=== PATIENT | female | born 1960 | race Caucasian/White ===

== ENCOUNTER 2017-03-11 02:30 | Observation (INO) | payer BC, MEDICARE ==
[2017-03-11] MEDS ORDERED: SODIUM CHLORIDE 0.9% 500 ML INFUS.BAG IV ONE ×3 (02:38→05:48)
--- NOTE | 2017-03-11 02:42 | PDOC ---
History of Present Illness - General Chief Complaint: Pain Stated Complaint: NECK/CHEST PAIN Past History - Past Medical History Allergies/Adverse Reactions: Allergies Allergy/AdvReac Type Severity Reaction Status Date / Time No Known Allergies Allergy Unverified 03/11/17 02:34 Home Medications: Ambulatory Orders Aspirin [Ecotrin] 81 mg PO DAILY 03/11/17 Enalapril Maleate [Vasotec -] 10 mg PO DAILY 03/11/17 Pravastatin Sodium [Pravachol (Nf)] 40 mg PO HS 03/11/17 Propylthiouracil 50 mg PO DAILY 03/11/17 Review of Systems - Review of Systems Constitutional: Yes: Loss of Appetite, Malaise. No: Symptoms Reported, See HPI , Chills, Diaphoresis, Fever, Night Sweats, Weakness, Weight Stable, Unintentional Wgt. Loss, Unexplained wgt Loss, Other HEENTM: No: Symptoms Reported, See HPI, Eye Pain, Blurred Vision, Tearing, Recent change in vision, Double Vision, Cataracts, Ear Pain, Ocular Prothesis, Ear Discharge, Nose Pain, Nose Congestion, Tinnitus, Nose Bleeding, Hearing Loss , Throat Pain, Throat Swelling, Mouth Pain, Dental Problems, Difficulty Swallowing, Mouth Swelling, Other Respiratory: Yes: Shortness of Breath. No: Symptoms reported, See HPI, Cough, Orthopnea, SOB with Exertion, SOB at Rest, Stridor, Wheezing, Productive cough, Hemoptysis, Other Cardiac (ROS): Yes: Chest Pain. No: Symptoms Reported, See HPI, Edema, Irregular Heart Rate, Lightheadedness, Palpitations, Syncope, Chest Tightness, Other ABD/GI: No: Symptoms Reported, See HPI, Abdominal Distended, Abd. Pain w/ defecation, Blood Streaked Bowels, Constipated, Diarrhea, Difficulty Swallowing , Nausea, Poor Appetite, Poor Fluid Intake, Rectal Bleeding, Vomiting, Indigestion, Abdominal cramping, Tarry Stools, Other : No: Symptoms Reported, See HPI, Burning, Dysuria, Discharge, Frequency, Flank Pain, Hematuria, Incontinence, Pain, Urgency, Testicular Mass, Testicular Swelling, Lesions, Testicular Pain, Other Musculoskeletal: No: Symptoms Reported, See HPI, Back Pain, Gout, Joint Pain, Joint Swelling, Muscle Pain, Muscle Weakness, Neck Pain, Joint Stiffness, Other Integumentary: No: Symptoms Reported, See HPI, Bruising, Change in Color, Change in Hair/Nails, Dryness, Erythema, Flushing, Lesions, Lumps, Pallor, Pruritus, Rash, Sweating, Other Neurological: No: Symptoms reported, See HPI, Headache, Numbness, Paresthesia, Pre-Existing Deficit, Seizure, Tingling, Tremors, Weakness, Unsteady Gait, Ataxia, Dizziness, Other Psychiatric: Yes: Anxiety. No: Depression, Frequent Crying, Stressors, Sleep Pattern Change, Emotional Problems, Mood Swings, Change in Appetite, Other *Physical Exam - Physical Exam General Appearance: Yes: Nourished, Appropriately Dressed HEENT: positive: EOMI, LALO, Normal ENT Inspection, Normal Voice, Symmetrical, TMs Normal, Pharynx Normal Neck: positive: Trachea midline, Normal Thyroid, Supple Respiratory/Chest: positive: Lungs Clear, Normal Breath Sounds Cardiovascular: positive: Regular Rhythm, Regular Rate, S1, S2 Vascular Pulses: Femoral (R): 2+, Femoral (L): 2+, Carotid (R): 2+, Carotid (L) : 2+ Gastrointestinal/Abdominal: positive: Normal Bowel Sounds, Flat, Soft Musculoskeletal: positive: Normal Inspection Extremity: positive: Normal Capillary Refill, Normal Inspection, Normal Range of Motion Integumentary: positive: Normal Color, Dry, Warm Neurologic: positive: 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 Pleuritic CP. Pt has a 49 year history of smoking cigarettes; currently smoking half PPD. SHe didn't smoke all day. Pt has HTN and hyperthyroidism and high cholesterol. EKG and blood pressure and exam is normal. She is tachycardic and she feels pain every time she takes a deep breath. I will check a d-dimer. 03/11/17 03:49 Patient Name: CATINA TAPIA THIS IS A PRELIMINARY REPORT FROM [facility] DATE OF SERVICE: 2017-03-11 03:12:18 IMAGES: 3 EXAM: XR CHEST HISTORY: Pleuritic chest pain COMPARISON: None. FINDINGS: The cardiomediastinal silhouette is normal. The lungs are clear. The bones and soft tissues are normal IMPRESSION: Normal chest. THIS DOCUMENT HAS BEEN ELECTRONICALLY SIGNED 03/11/17 03:54 CXR is normal and CBC is normal. Pt has some pleuritic CP; she will be given 2 percocets. 03/11/17 05:13 Labs are normal; Creatinine is elevated to 1.2. However since that time she received 1 L NSS, passed urine and she will be given another Liter of NSS after the study. Patient has 94-97% O2sat on room air, clear CXR; initial EKG that is NSR (no evidence of PE or right heart strain) and after hydration she no longer is tachycardic. However we will check for PE before she goes to telemetry for cardiac monitoring. Pt admitted to the hospitalist team to tele observation. -- 03/11/17 06:25 Patient Name: CATINA TAPIA THIS IS A PRELIMINARY REPORT FROM [facility] DATE OF SERVICE: 2017-03-11 05:27:24 IMAGES: [id number] EXAM: CT CTA CHEST HISTORY: Rule out PE COMPARISON: None. FINDINGS: There is no PE or dissection. Heart size is normal. The trachea and bronchi are patent. There is no pleural or pericardial effusion. The lungs are clear other than mild dependent atelectasis. No fractures identified. The upper abdominal structures are normal. IMPRESSION: No evidence of acute pathology. 03/11/17 06:38 Pt is comfortable at this time. *DC/Admit/Observation/Transfer Diagnosis at time of Disposition: Chest pain - Discharge Dispostion Condition at time of disposition: Guarded Admit: Yes - Referrals Referrals: Linda Chavez [Primary Care Provider] - - Patient Instructions - Post Discharge Activity
[2017-03-11 03:34] LABS: BASOPHIL 0.2 % (0-2.0); EOSINOPHIL 0.3 % (0-4.5); MCH 31.1 pg (25.7-33.7); MEAN CELL VOLUME 91.4 fl (80-96); NEUTROPHILS 80.7 % (42.8-82.8); PLATELET COUNT 205 K/MM3 (134-434); RDW 13.9 % (11.6-15.6); WHITE BLOOD COUNT 8.4 K/mm3 (4.0-10.0)
[2017-03-11 04:00] LABS: INR 1.02 (0.82-1.09); PROTHROMBIN TIME (PATIENT) 11.5 SEC (9.98-11.88)
[2017-03-11 04:36] LABS: ALBUMIN 3.7 g/dl (3.4-5.0); ANION GAP 10 (8-16); BILIRUBIN,TOTAL 0.9 mg/dL (0.2-1.0); CALCIUM 8.2 mg/dL (8.5-10.1); CO2 26 mmol/L (21-32); CREATININE 1.2 mg/dL (0.55-1.02); GLUCOSE,RANDOM 141 mg/dL (74-106); SGPT/ALT 55 U/L (12-78); TOT PROT 7.2 g/dl (6.4-8.2)
[2017-03-11 04:39] LABS: CPK 72 IU/L (26-192); TROPONIN I < 0.02 ng/ml (0.00-0.05)
[2017-03-11 04:40] LABS: ALK PHOS 60 U/L (45-117); SGOT/AST 35 U/L (15-37)
[2017-03-11 04:48] LABS: THYROID STIMULATING HORMONE 1.21 uIU/ml (0.358-3.74)
[2017-03-11] MEDS ORDERED: ASPIRIN 81 MG CHEWABLE TABLETS PO ONE (05:12)
[2017-03-11] MEDS ORDERED: ASPIRIN 81 MG CHEWABLE TABLETS ONE (05:14)
[2017-03-11] MEDS ORDERED: SODIUM CHLORIDE 1,000 ML IV SCH (05:15)
[2017-03-11] MEDS: ASPIRIN 81 MG CHEWABLE TABLETS PO SCH ×2 (05:56→09:59)
--- NOTE | 2017-03-11 07:24 | CONSULT ---
Consult - text type - Consultation Consultation Note: CARDIOLOGY ASKED BY DR. Rosario TO SEE PT. 56 YO FEMALE 03/11/17 THROAT/CHEST PAIN. PT SEEN, EXAMINED. X RAYS, ECG REVIEWED. WORKING DX NON CARDIAC PLEURITIC PAIN/VIRAL ILLNESS. DIFF DX: DOUBT PERICARDITIS. HIGHLY DOUBT ACUTE MYOCARDIAL ISCHEMIA. ECG NORMAL. REC: ADMIT SERIAL TROPONIN LEVELS/ECG. SED RATE COMPLETE CESSATION OF SMOKING IN FUTURE OUT PATIENT NON INVASIVE CARDIAC EVALUATION TO INCLUDE: A.STRESS TEST/CT CORONARY ANGIOGRAM B.ECHOCARDIOGRAM THANKS. FULL NOTE DICTATED. WILL FOLLOW.
[2017-03-11 08:00] VITALS: PULSE 71; BMI 21.5
--- NOTE | 2017-03-11 08:49 | CONS ---
DATE OF CONSULTATION: 03/11/2017 REQUESTING PHYSICIAN: Dr. Conley PATIENT PROFILE: The patient is a 56-year-old woman admitted on March 11, 2017, because of chest/throat pain. The patient has no known heart disease. There is no history of a myocardial infarction, angina, or congestive heart failure. Routine electrocardiograms have reportedly been normal, as assessed by regular physical examinations on a yearly basis. She was in her usual state of health until the day of admission, when she experienced discomfort in the anterior upper chest with radiation towards the throat. It hurt to a great extent when she took a deep breath, causing her to feel short of breath and having difficulty taking deep breaths. There was no nausea or diaphoresis. She came to the emergency room with persistent discomfort. Her symptoms have gradually abated at this time. There is a prior history of hypertension requiring medical therapy and hyperlipidemia. She previously had been told of diabetes, which reportedly has improved in the last several years. She previously had been treated for diabetes, but not most recently. PRESENT MEDICATIONS: Aspirin 81 mg per day; pravastatin 40 mg per day; propylthiouracil 50 mg per day; Vasotec 10 mg per day. SOCIAL HISTORY: The patient smokes at the present time and previously had smoked as much as 1 to 2 packs of cigarettes per day. 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 She lives at home with her . FAMILY HISTORY: Her father of cancer. Her mother is alive. There is no family history of acute myocardial infarction or sudden . PRIOR MEDICAL HISTORY: She has not been hospitalized in the last 32 years. Her last hospitalization representation the of her child. She has thyroid dysfunction. SURGICAL HISTORY: None. REVIEW OF SYSTEMS: General: No fever or chills. Gastrointestinal: No melena, no vomiting. Pulmonary: No hemoptysis. Neurologic: No focal deficit. PHYSICAL EXAMINATION: General: The patient appears anxious, but in no acute distress. Vital Signs: Temperature is 99.1, heart rate is 90, blood pressure is 120/70, respiratory rate is 16 per minute, weight is 112 pounds, oxygen saturation is 95% on ambient air. Neck: There is no neck vein distention. There is no carotid bruit. Pulmonary: Lung srinivasan are clear. Cardiovascular: The heart sounds are normal. No pericardial rub is audible, no murmur is detected. The PMI is normal and not displaced. No diastolic sounds are appreciated. Abdomen: Soft with active bowel sounds. Extremities: There is no peripheral edema. The dorsalis pedis pulses are +2 bilaterally. DATABASE: The electrocardiogram demonstrates sinus rhythm; normal tracing. A chest x-ray showed no infiltrate, effusion, or pulmonary venous congestion. Laboratory studies of note include a white blood cell count of 8.4, hematocrit 38%, platelet count 205,000. The INR is 1. The electrolytes are normal, BUN 22, creatinine 1.2. Troponin level was less than 0.02, CPK is 72. A CT angiogram of the chest/thorax is pending at the time of this dictation. IMPRESSION: The working diagnosis is noncardiac pleuritic chest/throat discomfort secondary to a viral infection with resultant inflammation. The differential diagnosis would include acute myocardial ischemia in the face of a normal electrocardiogram. The patient does have multiple risk factors for the development of atherosclerotic disease. In this regard, there is this valid concern; however, the normal electrocardiogram and normal troponin level argues against this disease. The possibility of pericarditis is raised; however, the physical findings and electrocardiographic data are not suggestive of this diagnosis. I recommend the followin. Admit to telemetry unit. 2. Serial ECG and troponin levels. 3. Sedimentation rate. 4. Await chest CT scan review by radiologist. 5. In the future, as an outpatient, a full, noninvasive workup to include an echocardiogram and stress test with myocardial imaging. 6. Complete cessation of smoking is emphasized. The diagnosis, prognosis, risks, options, and alternatives were explained at length to the patient and all questions answered. Thank you for allowing me to take part in the care of this pleasant patient; will follow along with you. BRIAN VILLANUEVA M.D. [id number] CC: Dr. Linda Zhao
[2017-03-11 10:25] LABS: ANION GAP 4 (8-16); CALCIUM 7.8 mg/dl (8.4-10.2); CHOLESTEROL 124 mg/dl; CO2 26 mmol/L (22-28); CREATININE 0.5 mg/dl (0.6-1.3); GLUCOSE,RANDOM 98 mg/dl (74-106); MAGNESIUM 1.8 mg/dL (1.8-2.4); PHOSPHOROUS 2.8 mg/dl (2.5-4.6)
--- NOTE | 2017-03-11 13:38 | HP ---
CHIEF COMPLAINT: Chest pain PCP: Dr. Chavez HISTORY OF PRESENT ILLNESS: This is a 56 year old female with primary medical history significant for HTN, HDL,hyperthyroidism and smoking, who presents to ER complains of mid-sternal stabbing pain radiates to neck which started on Sunday. Pt reports was in a [place] until the pain started. Pt reports took two Advil with no relief, denies sob, palpitations, dizziness, diaphoresis, abdominal pain, N/V/D, fever, chills. Pt received ASA 325mg in ER. ER course was notable for: (1) EKG- SR (2) CXr- No acute pathology (3) D- Dimer -502 Recent Travel: No PAST MEDICAL HISTORY: HTN, HDL, Hyperthyroidism PAST SURGICAL HISTORY: 32 years ago Social History: Smoking: Yes - smokes 10 cigarettes /day Alcohol:None Drugs:None Family History: Father did of Lung CA 2 yrs ago Mother with MS Allergies No Known Allergies Allergy (Unverified 03/11/17 02:34) HOME MEDICATIONS: Home Medications Medication Instructions Recorded Aspirin [Ecotrin] 81 mg PO DAILY 03/11/17 Enalapril Maleate [Vasotec -] 10 mg PO DAILY 03/11/17 Pravastatin Sodium [Pravachol (Nf)] 40 mg PO HS 03/11/17 Propylthiouracil 50 mg PO DAILY 03/11/17 REVIEW OF SYSTEMS CONSTITUTIONAL: Absent: fever, chills, diaphoresis, generalized weakness, malaise, loss of appetite, weight change HEENT: Absent: rhinorrhea, nasal congestion, throat pain, throat swelling, difficulty swallowing, mouth swelling, ear pain, eye pain, visual changes CARDIOVASCULAR: Absent: chest pain, syncope, palpitations, irregular heart rate, lightheadedness , peripheral edema RESPIRATORY: Absent: cough, shortness of breath, dyspnea with exertion, orthopnea, wheezing, stridor, hemoptysis GASTROINTESTINAL: Absent: abdominal pain, abdominal distension, nausea, vomiting, diarrhea, constipation, melena, hematochezia GENITOURINARY: Absent: dysuria, frequency, urgency, hesitancy, hematuria, flank pain, genital pain MUSCULOSKELETAL: Absent: myalgia, arthralgia, joint swelling, back pain, neck pain SKIN: Absent: rash, itching, pallor HEMATOLOGIC/IMMUNOLOGIC: Absent: easy bleeding, easy bruising, lymphadenopathy, frequent infections ENDOCRINE: Absent: unexplained weight gain, unexplained weight loss, heat intolerance, cold intolerance NEUROLOGIC: Absent: headache, focal weakness or paresthesias, dizziness, unsteady gait, seizure, mental status changes, bladder or bowel incontinence PSYCHIATRIC: Absent: anxiety, depression, suicidal or homicidal ideation, hallucinations. PHYSICAL EXAMINATION Vital Signs - 24 hr 03/11/17 03/11/17 03/11/17 02:36 05:25 07:54 Temperature 99 F 99.1 F 98.2 F Pulse Rate 93 H 71 Pulse Rate [ 67 Apical] Respiratory 18 15 18 Rate Blood Pressure 119/71 116/71 Blood Pressure 101/59 [Arm] O2 Sat by Pulse 94 L 95 100 Oximetry (%) 03/11/17 08:04 Temperature Pulse Rate Pulse Rate [ Apical] Respiratory 18 Rate Blood Pressure Blood Pressure [Arm] O2 Sat by Pulse 100 Oximetry (%) GENERAL: Awake, alert, and fully oriented, in no acute distress. HEAD: Normal with no signs of trauma. EYES: Pupils equal, round and reactive to light, extraocular movements intact, sclera anicteric, conjunctiva clear. No lid lag. EARS, NOSE, THROAT: Ears normal, nares patent, oropharynx clear without exudates. Moist mucous membranes. NECK: Normal range of motion, supple without lymphadenopathy, JVD, or masses. LUNGS: Breath sounds equal, clear to auscultation bilaterally. No wheezes, and no crackles. No accessory muscle use. HEART: Regular rate and rhythm, normal S1 and S2 without murmur, rub or gallop. ABDOMEN: Soft, nontender, not distended, normoactive bowel sounds, no guarding, no rebound, no masses. No hepatomegaly or splenomegaly. MUSCULOSKELETAL: Normal range of motion at all joints. No bony deformities or tenderness. No CVA tenderness. UPPER EXTREMITIES: 2+ pulses, warm, well-perfused. No cyanosis. No clubbing. No peripheral edema. LOWER EXTREMITIES: 2+ pulses, warm, well-perfused. No calf tenderness. No peripheral edema. NEUROLOGICAL: Cranial nerves II-XII intact. Normal speech. Normal gait. PSYCHIATRIC: Cooperative. Good eye contact. Appropriate mood and affect. SKIN: Warm, dry, normal turgor, no rashes or lesions noted, normal capillary refill. Laboratory Results - last 24 hr 03/11/17 03/11/17 03/11/17 02:45 02:48 02:48 WBC RBC Hgb Hct MCV MCH MCHC RDW Plt Count MPV Neutrophils % Lymphocytes % Monocytes % Eosinophils % Basophils % PT with INR INR D-Dimer 502 H Sodium 139 Potassium 4.5 Chloride 103 Carbon Dioxide 26 Anion Gap 10 BUN 22 H Creatinine 1.2 H Creat Clearance w eGFR 46.64 Random Glucose 141 H Hemoglobin A1c % Calcium 8.2 L Phosphorus Magnesium Total Bilirubin 0.9 AST 35 ALT 55 Alkaline Phosphatase 60 Creatine Kinase 72 Troponin I < 0.02 Total Protein 7.2 Albumin 3.7 Triglycerides Cholesterol Total LDL Cholesterol HDL Cholesterol Lipase 80 TSH 1.21 03/11/17 03/11/17 03/11/17 02:48 02:48 09:45 WBC 8.4 RBC 4.19 Hgb 13.0 Hct 38.3 MCV 91.4 MCH 31.1 MCHC 34.0 RDW 13.9 Plt Count 205 MPV 8.0 Neutrophils % 80.7 Lymphocytes % 12.7 Monocytes % 6.1 Eosinophils % 0.3 Basophils % 0.2 PT with INR 11.50 INR 1.02 D-Dimer Sodium 138 Potassium 3.5 Chloride 108 H Carbon Dioxide 26 Anion Gap 4 L BUN 7 Creatinine 0.5 L Creat Clearance w eGFR Random Glucose 98 Hemoglobin A1c % Calcium 7.8 L Phosphorus 2.8 Magnesium 1.8 Total Bilirubin AST ALT Alkaline Phosphatase Creatine Kinase Troponin I Total Protein Albumin Triglycerides 45 Cholesterol 124 Total LDL Cholesterol 68 HDL Cholesterol 47 Lipase TSH 03/11/17 03/11/17 09:45 09:45 WBC RBC Hgb Hct MCV MCH MCHC RDW Plt Count MPV Neutrophils % Lymphocytes % Monocytes % Eosinophils % Basophils % PT with INR INR D-Dimer Sodium Potassium Chloride Carbon Dioxide Anion Gap BUN Creatinine Creat Clearance w eGFR Random Glucose Hemoglobin A1c % 5.7 Calcium Phosphorus Magnesium Total Bilirubin AST ALT Alkaline Phosphatase Creatine Kinase Troponin I < 0.03 L Total Protein Albumin Triglycerides Cholesterol Total LDL Cholesterol HDL Cholesterol Lipase TSH CTA chest: No pulmonary Embolism CxR: No acute pathology EKG: SR ASSESSMENT/PLAN: This is a 56 year old female with primary medical history significant for HTN, HDL,hyperthyroidism and smoking, who presents to ER complains of mid-sternal stabbing pain radiates to neck which started on Sunday, no relief with Advil at home,denies sob, palpitations, dizziness, diaphoresis, abdominal pain, N/V/D , fever, chills. * Atypical chest pain, peluritic vs viral -EKG: SR - trop neg x2 - tele monitoring - cardiology input appreciated -D-Dimer -502 - CTA - PE ruled out - cardiology input appreciated - rec out pt Echo and Stress test * HTN - Will cont on home med lisinopril * HDL - will cont on home dose Statin -checked fasting lipids- wnl * Hyperthyroidism - will cont on PTU - TSH level - wnl * Smoking - smoking cessation counselling done - refusing Nicotine patch *VTE- OOB * F/E/N: Heart healthy diet Visit type - Emergency Visit Emergency Visit: Yes ED Registration Date: 03/11/17 Care time: The patient presented to the Emergency Department on the above date and was hospitalized for further evaluation of their emergent condition. - New Patient This patient is new to me today: Yes Date on this admission: 03/11/17 - Critical Care Critical Care patient: No
[2017-03-11 14:56] VITALS: BP 127/64; TEMP 98.9
--- NOTE | 2017-03-11 15:37 | DS ---
Physical Exam: SUBJECTIVE: Patient seen and examined OBJECTIVE: Pt reports chest pain resolved, no new complains. Vital Signs Period Temp Pulse Resp BP Sys/Shankar Pulse Ox Last 24 Hr 98.2 F-99.1 F 67-93 15-18 101-127/59-71 94-100 PHYSICAL EXAM GENERAL: The patient is awake, alert, and fully oriented, in no acute distress. HEAD: Normal with no signs of trauma. EYES: PERRL, extraocular movements intact, sclera anicteric, conjunctiva clear. ENT: Ears normal, nares patent, oropharynx clear without exudates, moist mucous membranes. NECK: Trachea midline, full range of motion, supple. LUNGS: Breath sounds equal, clear to auscultation bilaterally, no wheezes, no crackles, no accessory muscle use. HEART: Regular rate and rhythm, S1, S2 without murmur, rub or gallop. ABDOMEN: Soft, nontender, nondistended, normoactive bowel sounds, no guarding, no rebound, no hepatosplenomegaly, no masses. EXTREMITIES: 2+ pulses, warm, well-perfused, no edema. NEUROLOGICAL: Cranial nerves II through XII grossly intact. Normal speech, gait not observed. PSYCH: Normal mood, normal affect. SKIN: Warm, dry, normal turgor, no rashes or lesions noted. LABS Laboratory Results - last 24 hr 03/11/17 03/11/17 03/11/17 02:45 02:48 02:48 WBC RBC Hgb Hct MCV MCH MCHC RDW Plt Count MPV Neutrophils % Lymphocytes % Monocytes % Eosinophils % Basophils % PT with INR INR D-Dimer 502 H Sodium 139 Potassium 4.5 Chloride 103 Carbon Dioxide 26 Anion Gap 10 BUN 22 H Creatinine 1.2 H Creat Clearance w eGFR 46.64 Random Glucose 141 H Hemoglobin A1c % Calcium 8.2 L Phosphorus Magnesium Total Bilirubin 0.9 AST 35 ALT 55 Alkaline Phosphatase 60 Creatine Kinase 72 Troponin I < 0.02 Total Protein 7.2 Albumin 3.7 Triglycerides Cholesterol Total LDL Cholesterol HDL Cholesterol Lipase 80 TSH 1.21 03/11/17 03/11/17 03/11/17 02:48 02:48 09:45 WBC 8.4 RBC 4.19 Hgb 13.0 Hct 38.3 MCV 91.4 MCH 31.1 MCHC 34.0 RDW 13.9 Plt Count 205 MPV 8.0 Neutrophils % 80.7 Lymphocytes % 12.7 Monocytes % 6.1 Eosinophils % 0.3 Basophils % 0.2 PT with INR 11.50 INR 1.02 D-Dimer Sodium 138 Potassium 3.5 Chloride 108 H Carbon Dioxide 26 Anion Gap 4 L BUN 7 Creatinine 0.5 L Creat Clearance w eGFR Random Glucose 98 Hemoglobin A1c % Calcium 7.8 L Phosphorus 2.8 Magnesium 1.8 Total Bilirubin AST ALT Alkaline Phosphatase Creatine Kinase Troponin I Total Protein Albumin Triglycerides 45 Cholesterol 124 Total LDL Cholesterol 68 HDL Cholesterol 47 Lipase TSH 03/11/17 03/11/17 09:45 09:45 WBC RBC Hgb Hct MCV MCH MCHC RDW Plt Count MPV Neutrophils % Lymphocytes % Monocytes % Eosinophils % Basophils % PT with INR INR D-Dimer Sodium Potassium Chloride Carbon Dioxide Anion Gap BUN Creatinine Creat Clearance w eGFR Random Glucose Hemoglobin A1c % 5.7 Calcium Phosphorus Magnesium Total Bilirubin AST ALT Alkaline Phosphatase Creatine Kinase Troponin I < 0.03 L Total Protein Albumin Triglycerides Cholesterol Total LDL Cholesterol HDL Cholesterol Lipase TSH HOSPITAL COURSE: Date of Admission:03/11/17 Date of Discharge: 03/11/17 This is a 56 year old female with primary medical history significant for HTN, HDL,hyperthyroidism and smoking, who presents to ER complains of mid-sternal stabbing pain radiates to neck which started on Sunday, no relief with Advil at home,denies sob, palpitations, dizziness, diaphoresis, abdominal pain, N/V/D , fever, chills. EKG revealed SR, no ST changes noted. Pt was placed on observation, serial cardiac enzymes negative, ACS ruled out. Lab revealed mildly elevated D- Dimer, CTA ruled out PE, cardiology input appreciated, recommend out patient Echo and stress. Atypical chest pain likely peluritic vs viral illness. * HTN: BP stable, will cont on home med lisinopril * HDL:-checked fasting lipids with in normal limits,will cont on home dose Statin * Hyperthyroidism,will cont on PTU,TSH level - wnl * Smoking smoking cessation counselling done, refusing Nicotine patch Minutes to complete discharge: 40 Discharge Summary Reason For Visit: NECK/CHEST PAIN Current Active Problems Chest pain (Acute) Condition: Stable - Instructions Diet, Activity, Other Instructions: Heart Healthy diet Referrals: Wagner Dsouza MD [Staff Physician] - 1 Week () Linda Chavez [Primary Care Provider] - Disposition: HOME - Home Medications Comprehensive Discharge Medication List: Ambulatory Orders Aspirin [Ecotrin] 81 mg PO DAILY 03/11/17 Enalapril Maleate [Vasotec -] 10 mg PO DAILY 03/11/17 Pravastatin Sodium [Pravachol -] 40 mg PO HS 03/11/17 Propylthiouracil 50 mg PO DAILY 03/11/17 This patient is new to me today: Yes Date on this admission: 03/11/17 Emergency Visit: Yes ED Registration Date: 03/11/17 Care time: The patient presented to the Emergency Department on the above date and was hospitalized for further evaluation of their emergent condition. Critical Care patient: No - Discharge Referral Referred to [facility] No
[2017-03-11] MEDS ORDERED: ATORVASTATIN CA 10 MG TABLET (FP) PO SCH (22:00)
[2017-03-12] MEDS ORDERED: ENALAPRIL MALEATE 10 MG TABLET (FP) PO SCH (10:00)
[2017-03-12] MEDS ORDERED: PROPYLTHIOURACIL 50 MG TABLET (UD) PO SCH (10:00)
--- NOTE | 2017-03-12 14:22 | EKG ---
Test Reason : Blood Pressure : / mmHG Vent. Rate : 095 BPM Atrial Rate : 095 BPM P-R Int : 144 ms QRS Dur : 084 ms QT Int : 354 ms P-R-T Axes : -10 037 025 degrees QTc Int : 444 ms NORMAL SINUS RHYTHM NORMAL ECG NO PREVIOUS ECGS AVAILABLE Confirmed by ZAY MAHAJAN MD ([id number]) on 03/12/2017 2:22:24 PM Referred By: Confirmed By:ZAY MAHAJAN MD
== END 2017-03-11 15:55 | disposition home or self-care (01) ==
LOC: FER 02:30 → FM/S 06:51
PROVIDERS: ADMIT Internal Medicine; ATTEND Nurse Practitioner Family
PROC: 3E0337Z Introduction of Electrolytic and Water Balance Substance into Peripheral Vein, Percutaneous Approach (ICD-10-PCS; principal; 2017-03-11)
DX: R07.9 Chest pain, unspecified (principal); M54.2 Cervicalgia; F17.210 Nicotine dependence, cigarettes, uncomplicated; I10 Essential (primary) hypertension; E78.5 Hyperlipidemia, unspecified; Z79.82 Long term (current) use of aspirin; E05.90 Thyrotoxicosis, unspecified without thyrotoxic crisis or storm
CPT/HCPCS: 36415; 71020-TC; 71275-TC; 80048; 80053; 80061; 82550; 83036; 83690; 83735; 84100; 84443; 84484; 85025; 85379; 85610; 93005; 99283-25; G0378